=== PATIENT | male | born 1940 | race Caucasian/White ===

== ENCOUNTER 2021-01-17 17:22 | Outpatient (CLI) | payer MEDICARE, SELFPAY | END 2021-01-17 17:23 | disposition home or self-care (01) | LOC: ANHCOVIDVC 17:22 | PROVIDERS: PCP Podiatrist Foot & Ankle Surgery | DX: Z23 Encounter for immunization (principal) | CPT/HCPCS: 0001A; 91300 ==

== ENCOUNTER 2021-02-07 17:17 | Outpatient (CLI) | payer MEDICARE, SELFPAY | END 2021-02-07 17:18 | disposition home or self-care (01) | LOC: ANHCOVIDVC 17:17 | PROVIDERS: PCP Podiatrist Foot & Ankle Surgery | DX: Z23 Encounter for immunization (principal) | CPT/HCPCS: 0002A; 91300 ==

== ENCOUNTER 2025-07-05 13:49 | Outpatient (CLI) | payer MEDICARE, SELFPAY ==
[2025-07-05 15:11] LABS: Alanine Aminotransferase 31 U/L (6-50); Aspartate Amino Transferase 31 U/L (17-59)
== END 2025-07-05 13:50 | disposition home or self-care (01) ==
PROVIDERS: PCP Internal Medicine; Visit Provider Podiatrist Foot & Ankle Surgery
DX: B35.1 Tinea unguium (principal)
CPT/HCPCS: 36415; 84450; 84460

== ENCOUNTER 2025-09-29 14:21 | Outpatient (CLI) | payer MEDICARE, SELFPAY ==
--- OUTSIDE RECORDS SUMMARY | 2010-09-27 06:45 | XMS_ITS | Continuity of Care Document ---
Author Organization [facility] Address [address] [place] [address] [address] [place] [address] Phone Care Team Providers Care Professor Of Vegetable Science Name Role Phone Payton OD, Arthur Unavailable Unavailable Procedures Procedure Date Eye Exam & Treatment Refraction Eye Exam & Treatment Post-op Follow-up Visit Post-op Follow-up Visit Remove Cataract, Insert Lens Post-op Follow-up Visit Echo Exam Of Eye-Professional 8 Post-op Follow-up Visit Post-op Follow-up Visit Remove Cataract, Insert Lens Office/outpatient Visit, Est Echo Exam Of Eye Eye Exam & Treatment Advance Directives Directive Yes / No Effective Date File Name No Information Encounters Encounter Description Practice Location Reason(s) For Visit Diagnoses Date Provider Providers Copied on Encounter [facility], [address] [place] [address] [address], [place], [place], [id number], [place] tel:[phone] [facility] No Information 7201 0 Payton OD Arthur. [address] [facility] [place] , [address], [place], [address], [place]. tel:[phone] Referring Provider: Felicia Saeed OD J, [address] [place], [address]. tel:[phone] [facility], [address] [place] [address] [address], [place], [place], [address], tel:[phone] SEC [facility] No Information 0200 9 Payton OD Arhtur. [address] [facility] , [address], [place], [facility], . tel:[phone] Referring Provider: Felicia Gerber, [facility] [place], [address]. tel:[phone] [facility], [address] [place] [address] [address], [place], [place], [address], tel:[phone] [facility] No Information 1200 8 Jasmeet Boyd. [address] [place], [place] [address]ate [place] , [address], [place], [facility], . tel:[phone] Referring Provider: Felicia Gerber, [address] [place] [address], [facility]. tel:[phone] [facility], [address] [place] [address] [address], [place], [place], [address], tel:[phone] [facility] No Information 6200 8 Payton OD Arthur. [address] [place], [place] [address]ate Center , [address], [place], [facility], . tel:[phone] Referring Provider: Oliver Pearl, [address] [place], [place] [address]ate Center [address], [place], [facility]. tel:[phone] [facility], [address] [place] [address] [address], [place], [place], [address], tel:[phone] [facility] No Information 200 8 Jasmeet Boyd. [address] [place], [place] [address]ate Center , [address], [place], [facility], [place]. tel:[phone] Referring Provider: Felicia Gerber, [facility] [place], [address]. tel:[phone] [facility], [address] [place] [address] [address], [place], [place], [address], tel:[phone] SEC [facility] No Information May-0 2-200 8 Doisy Edward. [address] [facility] , [address], [place], [facility], . tel:[phone] Referring Provider: Felicia Gerber, [facility] [place], [address]. tel:[phone] [facility], [address] [place] [address] [address], [place], [place], [address], tel:[phone] SEC [facility] No Information Apr-1 8-200 8 Doisy Edward. [address] [facility] , [address], [place], [facility], . tel:[phone] Referring Provider: Felicia Gerber, [address] [place] [address], [address]. tel:[phone] [facility], [address] [place] [address] [address], [place], [place], [address], tel:[phone] SEC [facility] No Information Florentino-0 4-200 8 Doisy Edward. [facility] , [address], [place], [facility], [place]. tel:[phone] Referring Provider: Felicia Gerber, [address] [place] [address], [address]. tel:[phone] [facility], [address] [place] [address] [address], [place], [place], [address], [place] tel:[phone] [facility] No Information Florentino-0 3-200 8 Doisy Edward. [address] [facility] , [address], [place], [facility], [place]. tel:[phone] Referring Provider: Felicia Gerber, [place], [address]. tel:[phone] Office/outpat ient Visit, Est [facility], [address], [place], [place], [address], tel:[phone] SEC [facility] No Information Feb-0 4200 8 Doi Edward. [facility] , [address], [place], [facility], . tel:[phone] Referring Provider: Felicia Gerber, [address] [place] [address], [facility]. tel:[phone] [facility], [address], [place], [place], [address], tel:[phone] SEC [facility] No Information Aug-0 [address] [facility] Edward. [facility] , [address], [place], [facility], . tel:[phone] Referring Provider: Felicia Gerber, [address] [place] [address], [address]. tel:[phone] Family History Family Member Type Diagnosis Age At Onset No Information Payers Payer name Insurance type Covered constitution party ID Authoriza tion(s) No Information Social History Type Description Quantity Date Captured Comments Sex Male Smoking Status No Information Chief Complaint And Reason For Visit No Information Reason For Referral Reason For Referral No Information History Of Present Illness Encounter Date Complaint History Of Prese nt Illness No Information Functional Status Date Functional Assessmen t No Information Instructions Date Instruction Additional Infor mation No Information Assessments Type Assessment Date No Information Patient Care Teams Name Effective Dates (start - stop) Status Members No Information
--- OUTSIDE RECORDS SUMMARY | 2010-09-27 06:45 | XMS_ITS | Continuity of Care Document ---
Author Organization [facility] Address [address] [place] [address] ut[address] [place] [address] Phone Care Team Providers Care Sewer Repairer Name Role Phone Payton OD, Arthur Unavailable [...] Diagnoses Date Provider Providers Copied on Encounter [facility], [address] [place] [address] [address], [place], [place], [address], [place] tel:[phone] [facility] No Information 7201 0 Payton OD Arthur. [address] [facility] [place] , [address], [place], [address], [place]. tel:[phone] Referring Provider: Felicia Saeed OD J, [address] [place], [address]. tel:[phone] [facility], [address] [place] [address] [address], [place], [place], [address], tel:[phone] SEC [facility] No Information 0200 [address] Payton OD Arthur[address] [facility] , [address], [place], [facility], . tel:[phone] Referring Provider: Felicia Gerber, [facility] [place], [address]. tel:[phone] [facility], [address] [place] [address] [address], [place], [place], [address], tel:[phone] [facility] No Information 1200 8 Jasmeet Boyd. [address] [place], [place] [address]ate [place] , [address], [place], [facility], . tel:[phone] Referring Provider: Felicia Gerber, [address] [place] [address], [facility]. tel:[phone] [facility], [address] [place] [address] [address], [place], [place], [address], tel:[phone] SEC [facility] No Information 6200 8 Payton OD Arthur. [address] [place], [place] [address]ate Center , [address], [place], [facility], . tel:[phone] Referring Provider: Oliver Pearl, [address] [place], [place] [address]ate Center [address], [place], [facility]. tel:[phone] [facility], [address] [place] [address] [address], [place], [place], [address], tel:[phone] [facility] No Information 200 8 Jasmeet Boyd. [address] [place], [place] [address]ate Center , [address], [place], [facility], [place]. tel:[phone] Referring Provider: Felicia Gerber, [facility] [place], [address]. tel:[phone] [facility], [address] [place] [address] [address], [place], [place], [address], tel:[phone] SEC [facility] No Information May-0 2-200 8 Doisy Edward. [address] [facility] , [address], [place], [facility], . tel:[phone] Referring Provider: Felicia Gerber, [facility] [place], [address]. tel:[phone] [facility], [address] [place] [address] [address], [place], [place], [address], tel:[phone] SEC [facility] No Information Apr-1 8-200 8 Doisy Edward. [address] [facility] , [address], [place], [facility], . tel:[phone] Referring Provider: Felicia Gerber, [address] [place] [address], [address]. tel:[phone] [facility], [address] [place] [address] [address], [place], [place], [address], tel:[phone] [facility] No Information Florentino-0 4-200 8 Doisy Edward. [facility] , [address], [place], [facility], [place]. tel:[phone] Referring Provider: eFlicia Gerber, [address] [place] [address], [address]. tel:[phone] [facility], [address] [place] [address] [address], [place], [place], [address], [place] tel:[phone] [facility] No Information Florentino-0 3-200 8 Doisy Edward. [address] [facility] , [address], [place], [facility], [place]. tel:[phone] Referring Provider: Felicia Gerber, [facility] [place], [address]. tel:[phone] Office/outpat ient Visit, Est [facility], [address], [place], [place], [address], tel:[phone] [facility] No Information Feb-0 4200 8 Doi Edward. [facility] , [address], [place], [facility], . tel:[phone] Referring Provider: Felicia Gerber, [address] [place] [address], [facility]. tel:[phone] [facility], [address], [place], [place], [address], tel:[phone] [facility] No Information Aug-0 8200 7 [facility] Edward. [facility] , [address], [place], [facility], . tel:[phone] Referring Provider: Felicia Gerber, [address] [place] [address], [address]. tel:[phone] Family History Family Member Type Diagnosis Age At Onset No Information Payers Payer name Insurance type Covered libertarian ID Authoriza tion(s) No Information Social History [...]
--- OUTSIDE RECORDS SUMMARY | 2010-09-27 06:45 | XMS_ITS | Continuity of Care Document ---
Author Organization [facility] Address [address] [place] [address] utive [address] [place] [address] Phone Care Team Providers Care Apartment Manager Name Role Phone Payton OD, Arthur Unavailable [...] Diagnoses Date Provider Providers Copied on Encounter [facility], [address] [place] [address] [address], [place], [place], [address], [place] tel:[phone] [facility] No Information 7201 0 Payton OD Arthur. [address] [facility] [place] , [address], [place], [address], [place]. tel:[phone] Referring Provider: Felicia Saeed OD J, [address] [place], [address]. tel:[phone] [facility], [address] [place] [address] [address], [place], [place], [address], tel:[phone] SEC [facility] No Information 0200 9 Payton OD Arthur. [address] [facility] , [address], [place], [facility], . tel:[phone] Referring Provider: Felicia Gerber, [facility] [place], [address]. tel:[phone] [facility], [address] [place] [address] [address], [place], [place], [address], tel:[phone] [facility] No Information 1200 8 Jasmeet Boyd. [address] [place], [place] [address]ate [place] , [address], [place], [facility], . tel:[phone] Referring Provider: Felicia Gerber, [address] [place] [address], [facility]. tel:[phone] [facility], [address] [place] [address] [address], [place], [place], [address], tel:[phone] SEC [facility] No Information 6200 8 Payton OD Arthur. [address] [place], [place] [address]ate Center , [address], [place], [facility], . tel:[phone] Referring Provider: Oliver Pearl, [address] [place], [place] [address]ate Center [address], [place], [facility]. tel:[phone] [facility], [address] [place] [address] [address], [place], [place], [address], tel:[phone] [facility] No Information 200 8 Jasmeet Boyd. [address] [place], [place] [address]ate Center , [address], [place], [facility], [place]. tel:[phone] Referring Provider: Felicia Gerber, [facility] [place], [address]. tel:[phone] [facility], [address] [place] [address] [address], [place], [place], [address], tel:[phone] SEC [facility] No Information May-0 2-200 8 Doisy Edward. [address] [facility] , [address], [place], [facility], . tel:[phone] Referring Provider: Felicia Gerber, [facility] [place], [address]. tel:[phone] [facility], [address] [place] [address] [address], [place], [place], [address], tel:[phone] SEC [facility] No Information Apr-1 8-200 8 Doisy Edward. [address] [facility] , [address], [place], [facility], . tel:[phone] Referring Provider: Felicia Gerber, [address] [place] [address], [address]. tel:[phone] [facility], [address] [place] [address] [address], [place], [place], [address], tel:[phone] SEC [facility] No Information Florentino-0 4-200 8 Doisy Edward. [facility] , [address], [place], [facility], [place]. tel:[phone] Referring Provider: Felicia Gerber, [address] [place] [address], [address]. tel:[phone] [facility], [address] [place] [address] [address], [place], [place], [address], [place] tel:[phone] [facility] No Information Florentino-0 3-200 8 Doisy Edward. [address] [facility] , [address], [place], [facility], [place]. tel:[phone] Referring Provider: Felicia Gerber, [facility] [place], [address]. tel:[phone] Office/outpat ient Visit, Est [facility], [address], [place], [place], [address], tel:[phone] SEC [facility] No Information Feb-0 4200 8 Doi Edward. [facility] , [address], [place], [facility], . tel:[phone] Referring Provider: Felicia Gerber, [address] [place] [address], [facility]. tel:[phone] [facility], [address], [place], [place], [address], tel:[phone] SEC [facility] No Information Aug-0 8200 7 [facility] Edward. [facility] , [address], [place], [facility], . tel:[phone] Referring Provider: Felicia Gerber, [address] [place] [address], [address]. tel:[phone] Family History Family Member Type Diagnosis Age [...]
--- OUTSIDE RECORDS SUMMARY | 2010-09-27 06:45 | XMS_ITS | Continuity of Care Document ---
Author Organization [facility] Address [id number] [place] [address] [address] [place] [address] Phone Care Team Providers Care Floriculturist Name Role Phone Payton OD, Arthur Unavailable [...] Diagnoses Date Provider Providers Copied on Encounter formerly [facility], [address] [place] [address] [address], [place], [place], [address], [place] tel:[phone] SEC [facility] No Information 7201 0 Payton OD Arthur. [address] [facility] [place] , [address], [place], [address], [place]. tel:[phone] Referring Provider: Felicia Saeed OD J, [address] [place], [address]. tel:[phone] formerly [facility], [address] [place] [address] [address], [place], [place], [address], tel:[phone] SEC [facility] No Information 0200 9 Payton OD Arthur. [address] [facility] , [address], [place], [facility], . tel:[phone] Referring Provider: Felicia Gerber, [place], [address]. tel:[phone] [facility], [address] [place] [address] [address], [place], [place], [address], tel:[phone] SEC [facility] No Information 1200 8 Jasmeet Boyd. [address] [place], [place] [address]ate [place] , [address], [place], [facility], . tel:[phone] Referring Provider: Felicia Gerber, [address] [place] [address], [facility]. tel:[phone] [facility], [address] [place] [address] [address], [place], [place], [address], tel:[phone] SEC [facility] No Information 6200 8 Payton OD Arthur. [address] [place], [place] [address]ate Center , [address], [place], [facility], . tel:[phone] Referring Provider: Oliver Pearl, [address] [place], [place] [address]ate Center [address], [place], [facility]. tel:[phone] [facility], [address] [place] [address] [address], [place], [place], [address], tel:[phone] [facility] No Information 200 8 Jasmeet Boyd. [address] [place], [place] [address]ate Center , [address], [place], [facility], [place]. tel:[phone] Referring Provider: Felicia Gerber, [place], [address]. tel:[phone] [facility], [address] [place] [address] [address], [place], [place], [address], tel:[phone] [facility] No Information May-0 2-200 8 Doisy Edward. [address] [facility] , [address], [place], [facility], . tel:[phone] Referring Provider: Felicia Gerber, [place], [address]. tel:[phone] [facility], [address] [place] [address] [address], [place], [place], [address], tel:[phone] [facility] No Information Apr-1 8-200 8 Doisy Edward. [address] [facility] , [address], [place], [facility], . tel:[phone] Referring Provider: Felicia Gerber, [address] [place] [address], [address]. tel:[phone] formerly [facility], [address] [place] [address] [address], [place], [place], [address], tel:[phone] [facility] No Information Florentino-0 4-200 8 Doisy Edward. [facility] , [address], [place], [facility], [place]. tel:[phone] Referring Provider: Felicia Gerber, [address] [place] [address], [address]. tel:[phone] [facility], [address] [place] [address] [address], [place], [place], [address], [place] tel:[phone] [facility] No Information Florentino-0 3-200 8 Doisy Edward. [address] [facility] , [address], [place], [facility], [place]. tel:[phone] Referring Provider: Felicia Gerber, [place], [address]. tel:[phone] Office/outpat ient Visit, Est formerly [facility], [address], [place], [place], [address], tel:[phone] [facility] No Information Feb-0 4200 8 Doi Edward. [facility] , [address], [place], [facility], . tel:[phone] Referring Provider: Felicia Gerber, [address] [place] [address], [facility]. tel:[phone] formerly [facility], [address], [place], [place], [address], tel:[phone] [facility] No Information Aug-0 8200 7 [facility] Edward. [facility] , [address], [place], [facility], . tel:[phone] Referring Provider: Felicia Gerber, [address] [place] [address], [address]. tel:[phone] Family History Family Member Type Diagnosis Age At Onset No Information Payers Payer name Insurance type Covered alliance party ID Authoriza tion(s) No Information Social [...]
--- OUTSIDE RECORDS SUMMARY | 2010-09-27 06:45 | XMS_ITS | Continuity of Care Document ---
Author Organization [facility] Address [address] [place] [address] [address] [place] [address] Phone Care Team Providers Care Pompom Maker Name Role Phone Payton OD, Arthur Unavailable [...] Diagnoses Date Provider Providers Copied on Encounter [facility], [address] [place] [address] [address], [place], [place], [address], [place] tel:[phone] [facility] No Information 7201 0 Payton OD Arthur. [address] [facility] [place] , [address], [place], [address], [place]. tel:[phone] Referring Provider: Felicia Saeed OD J, [address] [place], [address]. tel:[phone] [facility], [address] [place] [address] [address], [place], [place], [address], tel:[phone] SEC [facility] No Information 0200 9 Payton OD Arthur. [address] [facility] [address] , [address], [place], [facility], . tel:[phone] Referring Provider: Felicia Gerber, [place], [address]. tel:[phone] [facility], [address] [place] [address] [address], [place], [place], [address], tel:[phone] SEC [facility] No Information 1200 8 Jasmeet Boyd. [address] [place], [place] [address]ate [place] , [address], [place], [facility], . tel:[phone] Referring Provider: Felicia Gerber, [address] [place] [address], [facility]. tel:[phone] [facility], [address] [place] [address] [address], [place], [place], [address], tel:[phone] SEC [facility] No Information 6200 8 Payton OD Arthur. [address] [place], [place] [address]ate Center , [address], [place], [facility], . tel:[phone] Referring Provider: Oliver Pearl, [address] [place], [place] [address]ate Center [address], [place], [facility]. tel:[phone] [facility], [address] [place] [address] [address], [place], [place], [address], tel:[phone] [facility] No Information 200 8 Jasmeet Boyd. [address] [place], [place] [address]ate Center , [address], [place], [facility], [place]. tel:[phone] Referring Provider: Felicia Gerber, [place], [address]. tel:[phone] [facility], [address] [place] [address] [address], [place], [place], [address], tel:[phone] SEC [facility] No Information May-0 2-200 8 Doisy Edward. [address] [facility] , [address], [place], [facility], . tel:[phone] Referring Provider: Felicia Gerber, [place], [address]. tel:[phone] [facility], [address] [place] [address] [address], [place], [place], [address], tel:[phone] SEC [facility] No Information Apr-1 8-200 8 Doisy Edward. [address] [facility] , [address], [place], [facility], . tel:[phone] Referring Provider: Felicia Gerber, [address] [place] [address], [address]. tel:[phone] [facility], [address] [place] [address] [address], [place], [place], [address], tel:[phone] SEC [facility] No Information Florentino-0 4-200 8 Doisy Edward. [facility] , [address], [place], [facility], [place]. tel:[phone] Referring Provider: Felicia Gerber, [address] [place] [address], [address]. tel:[phone] [facility], [address] [place] [address] [address], [place], [place], [address], [place] tel:[phone] [facility] No Information Florentino-0 3-200 8 Doisy Edward. [address] [facility] , [address], [place], [facility], [place]. tel:[phone] Referring Provider: Felicia Gerber, [place], [address]. tel:[phone] Office/outpat ient Visit, Est [facility], [address], [place], [place], [address], tel:[phone] SEC [facility] No Information Feb-0 4200 8 Doi Edward. [facility] , [address], [place], [facility], . tel:[phone] Referring Provider: Felicia Gerber, [address] [place] [address], [facility]. tel:[phone] [facility], [address], [place], [place], [address], tel:[phone] SEC [facility] No Information Aug-0 8200 7 [facility] Edward. [facility] , [address], [place], [facility], . tel:[phone] Referring Provider: Felicia Gerber, [address] [place] [address], [address]. tel:[phone] Family History Family Member Type Diagnosis Age At Onset No Information Payers Payer name Insurance type Covered green party ID Authoriza tion(s) No Information Social [...]
--- OUTSIDE RECORDS SUMMARY | 2010-09-27 06:45 | XMS_ITS | Continuity of Care Document ---
Author Organization [facility] Address [address] [place] [address] [address] [place] [address] Phone Care Team Providers Care Bell Spinner Sousaphones Name Role Phone Payton OD, Arthur Unavailable [...] Date Provider Providers Copied on Encounter [facility], [address] [place] [address] [address], [place], [place], [address], [place] tel:[phone] [facility] No Information 7201 0 Payton OD Arthur. [address] [facility] [place] , [address], [place], [address], [place]. tel:[phone] Referring Provider: Felicia Saeed OD J, [address] [place], [address]. tel:[phone] [facility], [address] [place] [address] [address], [place], [place], [address], tel:[phone] SEC [facility] No Information 0200 9 Payton OD Arthur. [address] [facility] , [address], [place], [facility], . tel:[phone] Referring Provider: Felicia Gerber, [facility] [place], [address]. tel:[phone] [facility], [address] [place] [address] [address], [place], [place], [address], tel:[phone] [facility] No Information 1200 8 Jasmeet Boyd. [address] [place], [place] [address]ate [place] , [address], [place], [facility], . tel:[phone] Referring Provider: Felicia Gerber, [address] [place] [address], [facility]. tel:[phone] [facility], [address] [place] [address] [address], [place], [place], [address], tel:[phone] SEC [facility] No Information 6200 8 Payton OD Arthur. [address] [place], [place] [address]ate Center , [address], [place], [facility], . tel:[phone] Referring Provider: Oliver Pearl, [address] [place], [place] [address]ate Center [address], [place], [facility]. tel:[phone] [facility], [address] [place] [address] [address], [place], [place], [address], tel:[phone] [facility] No Information 200 8 Jasmeet Boyd. [address] [place], [place] [address]ate Center , [address], [place], [facility], [place]. tel:[phone] Referring Provider: Felicia Gerber, [facility] [place], [address]. tel:[phone] [facility], [address] [place] [address] [address], [place], [place], [address], tel:[phone] SEC [facility] No Information May-0 2-200 8 Doisy Edward. [address] [facility] , [address], [place], [facility], . tel:[phone] Referring Provider: Felicia Gerber, [facility] [place], [address]. tel:[phone] [facility], [address] [place] [address] [address], [place], [place], [address], tel:[phone] SEC [facility] No Information Apr-1 8-200 8 Doisy Edward. [address] [facility] , [address], [place], [facility], . tel:[phone] Referring Provider: Felicia Gerber, [address] [place] [address], [address]. tel:[phone] [facility], [address] [place] [address] [address], [place], [place], [address], tel:[phone] SEC [facility] No Information Florentino-0 4-200 8 Doisy Edward. [facility] , [address], [place], [facility], [place]. tel:[phone] Referring Provider: Felicia Gerber, [address] [place] [address], [address]. tel:[phone] [facility], [address] [place] [address] [address], [place], [place], [address], [place] tel:[phone] [facility] No Information Florentino-0 3-200 8 Doisy Edward. [address] [facility] , [address], [place], [facility], [place]. tel:[phone] Referring Provider: Felicia Gerber, [facility] [place], [address]. tel:[phone] Office/outpat ient Visit, Est [facility], [address] [place], [place], [place], [address], tel:[phone] SEC [facility] No Information Feb-0 4200 8 Doi Edward. [facility] , [address], [place], [facility], . tel:[phone] Referring Provider: Felicia Gerber, [address] [place] [address], [facility]. tel:[phone] [facility], [address], [place], [place], [address], tel:[phone] SEC [facility] No Information Aug-0 8200 7 [facility] Edward. [facility] , [address], [place], [facility], . tel:[phone] Referring Provider: Felicia Gerber, [address] [place] [address], [address]. tel:[phone] Family History Family Member Type Diagnosis Age [...]
--- OUTSIDE RECORDS SUMMARY | 2010-09-27 06:45 | XMS_ITS | Continuity of Care Document ---
Author Organization [facility] Address [address] [place] [address] ut[address] [place] [address] Phone Care Team Providers Care Parts Counter Sales Person Name Role Phone Payton OD, Arthur Unavailable [...] Diagnoses Date Provider Providers Copied on Encounter [facility], [address] [place] [address] [address], [place], [place], [address], [place] tel:[phone] [facility] No Information 7201 0 Payton OD Arthur. [address] [facility] [place] , [address], [place], [address], [place]. tel:[phone] Referring Provider: Felicia Saeed OD J, [address] [place], [address]. tel:[phone] [facility], [address] [place] [address] [address], [place], [place], [address], tel:[phone] SEC [facility] No Information 0200 9 Payton OD Arthur. [address] [facility] , [address], [place], [facility], . tel:[phone] Referring Provider: Felicia Gerber, [facility] [place], [address]. tel:[phone] [facility], [address] [place] [address] [address], [place], [place], [address], tel:[phone] [facility] No Information 1200 8 Jasmeet Boyd. [address] [place], [place] [address]ate [place] , [address], [place], [facility], . tel:[phone] Referring Provider: Felicia Gerber, [address] [place] [address], [facility]. tel:[phone] [facility], [address] [place] [address] [address], [place], [place], [address], tel:[phone] SEC [facility] No Information 6200 8 Payton OD Arthur. [address] [place], [place] [address]ate Center , [address], [place], [facility], . tel:[phone] Referring Provider: Oliver Pearl, [address] [place], [place] [address]ate Center [address], [place], [facility]. tel:[phone] [facility], [address] [place] [address] [address], [place], [place], [address], tel:[phone] [facility] No Information 200 8 Jasmeet Boyd. [address] [place], [place] [address]ate Center , [address], [place], [facility], [place]. tel:[phone] Referring Provider: Felicia Gerber, [facility] [place], [address]. tel:[phone] [facility], [address] [place] [address] [address], [place], [place], [address], tel:[phone] SEC [facility] No Information May-0 2-200 8 Doisy Edward. [address] [facility] , [address], [place], [facility], . tel:[phone] Referring Provider: Felicia Gerber, [facility] [place], [address]. tel:[phone] [facility], [address] [place] [address] [address], [place], [place], [address], tel:[phone] SEC [facility] No Information Apr-1 8-200 8 Doisy Edward. [address] [facility] , [address], [place], [facility], . tel:[phone] Referring Provider: Felicia Gerber, [address] [place] [address], [address]. tel:[phone] [facility], [address] [place] [address] [address], [place], [place], [address], tel:[phone] SEC [facility] No Information Florentino-0 4-200 8 Doisy Edward. [facility] , [address], [place], [facility], [place]. tel:[phone] Referring Provider: Felicia Gerber, [address] [place] [address], [address]. tel:[phone] [facility], [address] [place] [address] [address], [place], [place], [address], [place] tel:[phone] [facility] No Information Florentino-0 3-200 8 Doisy Edward. [address] [facility] , [address], [place], [facility], [place]. tel:[phone] Referring Provider: Felicia Gerber, [facility] [place], [address]. tel:[phone] Office/outpat ient Visit, Est [facility], [address] [place], [place], [place], [address], tel:[phone] SEC [facility] No Information Feb-0 4200 8 Doi Edward. [facility] , [address], [place], [facility], . tel:[phone] Referring Provider: Felicia Gerber, [address] [place] [address], [facility]. tel:[phone] [facility], [address] [place], [place], [place], [address], tel:[phone] SEC [facility] No Information Aug-0 8200 7 [facility] Edward. [facility] , [address], [place], [facility], . tel:[phone] Referring Provider: Felicia Gerber, [address] [place] [address], [address]. tel:[phone] Family History Family Member Type Diagnosis Age At Onset No Information Payers Payer name Insurance type Covered democrat ID Authoriza tion(s) No Information Social History [...]
--- OUTSIDE RECORDS SUMMARY | 2010-09-27 06:45 | XMS_ITS | Continuity of Care Document ---
Author Organization [facility] Address [id number] [place] [address] ut[address] [place] [address] Phone Care Team Providers Care Wheel And Pinion Inspector Name Role Phone Payton OD, Arthur Unavailable [...] Diagnoses Date Provider Providers Copied on Encounter [facility], [address] [place] [address] [address], [place], [place], [id number], [place] tel:[phone] [facility] No Information 7201 0 Payton OD Arthur. [address] [facility] [place] , [address], [place], [address], [place]. tel:[phone] Referring Provider: Felicia Saeed OD J, [address] [place], [address]. tel:[phone] [facility], [address] [place] [address] [address], [place], [place], [address], tel:[phone] SEC [facility] No Information 0200 9 Payton OD Arthur. [address] [facility] , [address], [place], [place], [facility], . tel:[phone] Referring Provider: Felicia Gerber, [facility] [place], [address]. tel:[phone] [facility], [address] [place] [address] [address], [place], [place], [address], tel:[phone] [facility] No Information 1200 8 Jasmeet Boyd. [address] [place], [place] [address]ate [place] , [address], [place], [facility], . tel:[phone] Referring Provider: Felicia Gerber, [address] [place] [address], [facility]. tel:[phone] [facility], [address] [place] [address] [address], [place], [place], [address], tel:[phone] SEC [facility] No Information 6200 8 Payton OD Arthur. [address] [place], [place] [address]ate Center , [address], [place], [facility], . tel:[phone] Referring Provider: Oliver Pearl, [address] [place], [place] [address]ate Center [address], [place], [facility]. tel:[phone] [facility], [address] [place] [address] [address], [place], [place], [address], tel:[phone] SepCritical access hospital No Information 200 8 Jasmeet Boyd. [address] [place], [place] [address]ate Center , [address], [place], [facility], [place]. tel:[phone] Referring Provider: Felicia Gerber, [facility] [place], [address]. tel:[phone] [facility], [address] [place] [address] [address], [place], [place], [address], tel:[phone] [facility] No Information May-0 2-200 8 Doisy Edward. [address] [facility] , [address], [place], [facility], . tel:[phone] Referring Provider: Felicia Gerber, [facility] [place], [address]. tel:[phone] [facility], [address] [place] [address] [address], [place], [place], [address], tel:[phone] [facility] No Information Apr-1 8-200 8 Doisy Edward. [address] [facility] , [address], [place], [facility], . tel:[phone] Referring Provider: Felicia Gerber, [address] [place] [address], [address]. tel:[phone] [facility], [address] [place] [address] [address], [place], [place], [address], tel:[phone] [facility] No Information Florentino-0 4-200 8 Doisy Edward. [facility] , [address], [place], [facility], [place]. tel:[phone] Referring Provider: Felicia Gerber, [address] [place] [address], [address]. tel:[phone] [facility], [address] [place] [address] [address], [place], [place], [address], [place] tel:[phone] NovCritical access hospital No Information Florentino-0 3-200 8 Doisy Edward. [address] [facility] , [address], [place], [facility], [place]. tel:[phone] Referring Provider: Felicia Gerber, [facility] [place], [address]. tel:[phone] Office/outpat ient Visit, Est [facility], [address], [place], [place], [address], tel:[phone] [facility] No Information Feb-0 4200 8 Doi Edward. [facility] , [address], [place], [facility], . tel:[phone] Referring Provider: Felicia Gerber, [address] [place] [address], [facility]. tel:[phone] [facility], [address], [place], [place], [address], tel:[phone] [facility] No Information Aug-0 8200 7 [facility] Edward. [facility] , [address], [place], [facility], . tel:[phone] Referring Provider: Felicia Gerber, [address] [place] [address], [address]. tel:[phone] Family History Family Member Type Diagnosis Age At Onset No Information Payers Payer name Insurance type Covered republican ID Authoriza tion(s) No Information Social History [...]
--- OUTSIDE RECORDS SUMMARY | 2010-09-27 06:45 | XMS_ITS | Continuity of Care Document ---
Author Organization [facility] Address [id number] [place] [address] ut[address] [place] [address] Phone Care Team Providers Care Splicing Supervisor Name Role Phone Payton OD, Arthur Unavailable [...] Diagnoses Date Provider Providers Copied on Encounter [facility], [address] [place] [address] [address], [place], [place], [id number], [place] tel:[phone] SEC [facility] No Information 7201 0 Payton OD Arthur. [address] [facility] [place] , [address], [place], [address], [place]. tel:[phone] Referring Provider: Felicia Saeed OD J, [address] [place], [address]. tel:[phone] [facility], [address] [place] [address] [address], [place], [place], [address], tel:[phone] SEC [facility] No Information 0200 9 Payton OD Arthur. [address] [facility] , [address], [place], [facility], . tel: [phone] Referring Provider: Felicia Gerber, [facility] [place], [address]. tel:[phone] [facility], [address] [place] [address] [address], [place], [place], [address], tel:[phone] SEC [facility] No Information 1200 8 Jasmeet Boyd. [address] [place], [place] [address] , [address], [place], [facility], . tel:[phone] Referring Provider: Felicia Gerber, [address] [place] [address], [facility]. tel:[phone] [facility], [address] [place] [address] [address], [place], [place], [address], tel:[phone] SEC [facility] No Information 6200 8 Payton OD Arthur. [address] [place], [place] [address]ate Center , [address], [place], [facility], . tel:[phone] Referring Provider: Oliver Pearl, [address] [place], [place] [address]ate Center [address], [place], [facility]. tel:[phone] [facility], [address] [place] [address] [address], [place], [place], [address], tel:[phone] SepCritical access hospital No Information 200 8 Jasmeet Boyd. [address] [place], [place] [address]ate Center , [address], [place], [facility], [place]. tel:[phone] Referring Provider: Felicia Gerber, [facility] [place], [address]. tel:[phone] [facility], [address] [place] [address] [address], [place], [place], [address], tel:[phone] [facility] No Information May-0 2-200 8 Doisy Edward. [address] [facility] , [address], [place], [facility], . tel:[phone] Referring Provider: Felicia Gerber, [facility] [place], [address]. tel:[phone] [facility], [address] [place] [address] [address], [place], [place], [address], tel:[phone] [facility] No Information Apr-1 8-200 8 Doisy Edward. [address] [facility] , [address], [place], [facility], . tel:[phone] Referring Provider: Felicia Gerber, [address] [place] [address], [address]. tel:[phone] [facility], [address] [place] [address] [address], [place], [place], [address], tel:[phone] [facility] No Information Florentino-0 4-200 8 Doisy Edward. [facility] , [address], [place], [facility], [place]. tel:[phone] Referring Provider: Felicia Gerber, [address] [place] [address], [address]. tel:[phone] [facility], [address] [place] [address] [address], [place], [place], [address], [place] tel:[phone] NovCritical access hospital No Information Florentino-0 3-200 8 Doisy Edward. [address] [facility] , [address], [place], [facility], [place]. tel:[phone] Referring Provider: Felicia Gerber, [facility] [place], [address]. tel:[phone] Office/outpat ient Visit, Est [facility], [address], [place], [place], [address], tel:[phone] [facility] No Information Feb-0 4200 8 Doi Edward. [facility] , [address], [place], [facility], . tel:[phone] Referring Provider: Felicia Gerber, [address] [place] [address], [facility]. tel:[phone] [facility], [address], [place], [place], [address], tel:[phone] [facility] No Information Aug-0 8200 7 [facility] Edward. [facility] , [address], [place], [facility], . tel:[phone] Referring Provider: Felicia Gerber, [address] [place] [address], [address]. tel:[phone] Family History Family Member Type Diagnosis Age [...]
[2025-09-29 14:56] LABS: Alanine Aminotransferase 24 U/L (6-50); Aspartate Amino Transferase 30 U/L (17-59)
== END 2025-09-29 14:22 | disposition home or self-care (01) ==
PROVIDERS: PCP Internal Medicine; Visit Provider Podiatrist Foot & Ankle Surgery
DX: B35.1 Tinea unguium (principal)
CPT/HCPCS: 36415; 84450; 84460